=== PATIENT | male | born 1985 | race Caucasian/White ===

== ENCOUNTER 2019-02-23 14:55 | Emergency (ER) | payer OTHER, SELFPAY ==
[2019-02-23 14:56] VITALS: BP 147/94; PULSE 77; RESP 16; TEMP 37.1; O2SAT 98; BMI 28.0
--- NOTE | 2019-02-23 15:10 | ED.RN ---
CO LEVEL 4 PER MONITOR USED BY [facility] DEPARTMENT.
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
[2019-02-23 15:51] VITALS: BP 135/92; PULSE 79; RESP 17; O2SAT 98
--- NOTE | 2019-02-23 15:51 | ED.RN ---
PT GIVEN WRITTEN AND VERBAL DISCHARGE INSTRUCTIONS AND EDUCATED ON DX. PT VERBALIZES UNDERSTANDING AND DENIES ANY FURTHER QUESTIONS. IV D/C AND COVERED WITH 2X2 GAUZE AND PAPER TAPE. PT WAITING ON CORPORATE CARE.
--- NOTE | 2019-02-23 16:01 | ED.RN ---
PT AMBULATED OUT OF ED, GAIT STEADY.
== END 2019-02-23 16:02 | disposition home or self-care (01) ==
LOC: ED 15:39
PROVIDERS: Emergency Provider Physician Assistant Medical; Family Provider Family Medicine; PCP Family Medicine
DX: T67.5XXA Heat exhaustion, unspecified, initial encounter (principal); X30.XXXA Exposure to excessive natural heat, initial encounter; Y93.9 Activity, unspecified; Y92.9 Unspecified place or not applicable; F17.200 Nicotine dependence, unspecified, uncomplicated
CPT/HCPCS: 99285